=== PATIENT | female | born 1985 | race Caucasian/White ===

== ENCOUNTER 2022-09-09 22:53 | Emergency (ER) | payer BC, SELFPAY ==
[2022-09-09 22:55] VITALS: BP 147/79; PULSE 85; RESP 16; TEMP 37.2; O2SAT 100; BMI 23.9
--- NOTE | 2022-09-09 23:07 | ED_ITS ---
HPI - General Adult General Time Seen by Provider: 23:07 Date Seen: 09/09/22 Chief complaint: Urogenital Problems, Female Stated complaint: Cant empty bladder Time Seen by Provider: 09/09/22 23:01 Source: patient, RN notes reviewed and old records reviewed Mode of arrival: ambulatory Limitations: no limitations History of Present Illness HPI narrative: 37-year-old female who comes in today with sensation of incomplete bladder emptying. This is been going on a couple of days. Some dysuria. Denies flank pain, back pain, bowel or bladder incontinence, numbness or tingling in the legs. Related Data Home Medications Medication Instructions Recorded Confirmed albuterol sulfate 90 mcg/actuation 2 puff inhalation Q6H PRN 07/18/22 07/18/22 aerosol inhaler Previous Rx's Medication Instructions Recorded cefdinir 300 mg capsule 300 mg PO BID #14 caps 09/09/22 Allergies Allergy/AdvReac Type Severity Reaction Status Date / Time No Known Drug Allergies Allergy Verified 09/09/22 22:58 PFSH PFSH Social History Smoking Status: Never smoker Exam Narrative: Exam Narrative: General: Well-developed and well-nourished, no acute distress Head: Atraumatic and normocephalic Eyes: Pupils are equal reactive, extraocular motions intact, conjunctiva clear ENT: External nose and ears are normal, posterior pharynx without erythema or exudate Neck: No midline cervical tenderness, full spontaneous range of motion the neck, trachea midline, no adenopathy Heart: Regular rate and rhythm no murmurs or thrills Lungs: Clear to auscultation bilaterally without wheezes or crackles Abdomen: Soft, nontender, nondistended with active bowel sounds Musculoskeletal: No tenderness, deformity, or edema Neurologic: Awake, alert, and oriented x3, no gross focal neurologic deficits, cranial nerves intact as tested Psych: Mood and affect are appropriate Skin: No rashes Const: Vital Signs, click to edit/add: Vital Signs - 24 hr 09/09/22 22:55 Temperature 98.9 F Pulse Rate [Right Pulse Oximeter] 85 Respiratory Rate 16 Blood Pressure [Ri ght Upper Arm] 147/79 H Pulse Oximetry 100 Oxygen Delivery Me thod Room Air Course Course Hospital Course: Patient seen examined, prior records reviewed. Patient presents with sensation of incomplete bladder emptying. Bladder scan postvoid shows 0 residual. Urinalysis is ordered. If this shows evidence for urinary tract infection, this will be treated. If negative, consider CT scan to evaluate for external pressure on the bladder causing sensation of fullness. Consider also bladder wall stone, if urinalysis as signs of blood, proceed with CT scan. Reevaluation(s) Time of Reevaluation #1: 23:32 Reevaluation #1: Urinalysis independently interpreted by me is consistent with infection. Patient was started on Pyridium and Omnicef and is stable for discharge Vital Signs Vital signs: Initial Vital Signs Temperature 98.9 F 09/09/22 22:55 Temperature Source Temporal Artery Scan 09/09/22 22:55 Pulse Rate 85 09/09/22 22:55 Pulse Rhythm Regular 09/09/22 22:55 Pulse Strength 3+ Normal 09/09/22 22:55 Respiratory Rate 16 09/09/22 22:55 Blood Pressure 147/79 H 09/09/22 22:55 Blood Pressure Mean 101 09/09/22 22:55 Blood Pressure Position Sitting 09/09/22 22:55 Pulse Oximetry 100 09/09/22 22:55 Oxygen Delivery Method Room Air 09/09/22 22:55 Vital Signs Temperature 98.9 F 09/09/22 22:55 Pulse Rate 85 09/09/22 22:55 Respiratory Rate 16 09/09/22 22:55 Blood Pressure 147/79 H 09/09/22 22:55 Pulse Oximetry 100 09/09/22 22:55 Oxygen Delivery Method Room Air 09/09/22 22:55 Temperature 98.9 F 09/09/22 22:55 Pulse Rate 85 09/09/22 22:55 Respiratory Rate 16 09/09/22 22:55 Blood Pressure 147/79 H 09/09/22 22:55 Pulse Oximetry 100 09/09/22 22:55 Oxygen Delivery Method Room Air 09/09/22 22:55 Medical Decision Making Lab Data Labs: Lab Results 09/09/22 Range/Units 23:16 Urine Color Yellow (Yellow) Urine Appearance Cloudy A (Clear) Urine pH 5.5 (5.0-8.5) Ur Specific [place] >= 1.030 (1.000-1.030) Urine Protein 2+ A (Negative) Urine Glucose (UA) Negative (Negative) Urine Ketones Negative (Negative) Urine Blood 2+ A (Negative) Urine Nitrite Negative (Negative) Urine Bilirubin Negative (Negative) Urine Urobilinogen 0.2 (0.2-1.0) Ur Leukocyte Esterase 2+ A (Negative) Urine RBC 5-10 A (0-2) Urine WBC 25-50 A (0-5) Ur Squamous Epith Cells Moderate A (None-Few) Urine Bacteria Moderate A (None) Discharge Plan Discharge Clinical Impression: Urinary tract infection Patient Disposition: Home, Self-Care Condition: Stable Instructions: Urinary Tract Infection in Women (DC) Additional Instructions: Start antibiotics tomorrow as prescribed. Take Pyridium for urinary discomfort Activity Level: No Restrictions Discharge Diet: Regular Prescriptions: New cefdinir 300 mg capsule 300 mg PO BID Qty: 14 0RF No Action albuterol sulfate 90 mcg/actuation HFA aerosol inhaler 2 puff inhalation Q6H PRN Follow Up/Referrals: Zuri Smalls PA-C [Referring] - Stand Alone Forms: the grafterth Info Instructions
[2022-09-09 23:21] LABS: Appearance Urine Cloudy (Clear); Bilirubin Urine Negative (Negative); Blood Urine 2+ (Negative); Color Urine Yellow (Yellow); Glucose Urine Negative (Negative); Ketones Urine Negative (Negative); Leukocyte Esterase Urine 2+ (Negative); Nitrite Urine Negative (Negative); Protein Urine 2+ (Negative); Specific Gravity Urine >= 1.030 (1.000-1.030); Urobilinogen Urine 0.2 (0.2-1.0); pH Urine 5.5 (5.0-8.5)
[2022-09-09 23:29] LABS: Bacteria Urine Moderate; Squamous Epithelial Cell Urine Moderate (None-Few); WBC Urine 25-50 (0-5)
[2022-09-09] MEDS: cephALEXin 500 MG CAPSULE PO (23:40)
== END 2022-09-09 23:43 | disposition home or self-care (01) ==
PROVIDERS: Emergency Provider Family Medicine
DX: N39.0 Urinary tract infection, site not specified (principal)
CPT/HCPCS: 51798; 81001; 87086; 99283; 99284; A9270

== ENCOUNTER 2022-09-29 16:48 | Outpatient (CLI) | payer BC, SELFPAY | END 2022-09-29 16:49 | disposition home or self-care (01) | LOC: NFLDREF 10-01 07:07 | PROVIDERS: PCP Registered Nurse; Referring Provider Registered Nurse; Visit Provider Registered Nurse | DX: R30.0 Dysuria (principal); N39.0 Urinary tract infection, site not specified; N30.01 Acute cystitis with hematuria | CPT/HCPCS: 87086 ==

== ENCOUNTER 2024-03-21 13:34 | Emergency (ER) | payer BC, SELFPAY ==
[2024-03-21 14:41] VITALS: BP 123/66; PULSE 75; RESP 16; TEMP 36.7; O2SAT 99; BMI 28.3
--- NOTE | 2024-03-21 16:22 | ED.UPPEXIN ---
HPI - Extremity Injury (Upper) General Chief Complaint: Extremity Pain/Injury, Upper Stated Complaint: hurt left hand, two fingers had bent backwards Time Seen by Provider: 03/21/24 16:06 History of Present Illness HPI narrative: This 39-year-old female comes in because of persistent pain of her left hand. She fell a couple months ago and hyper extended her middle and ring fingers on her left hand at the MP joint. She had an x-ray about a month ago which was negative. She was thinking that her symptoms should of improved by now but she comes in stating that she continues to have pain in this area. Related Data Home Medications ?Medication ?Instructions ?Recorded ?Confirmed albuterol sulfate 90 mcg/actuation 2 puff inhalation Q6H PRN 07/18/22 03/21/24 aerosol inhaler Previous Rx's ?Medication ?Instructions ?Recorded methylprednisolone 4 mg tablets in See Rx Instructions PO .COMPLEX 03/21/24 a dose pack (Medrol (Caleb)) #21 ea Allergies Allergy/AdvReac Type Severity Reaction Status Date / Time No Known Drug Allergies Allergy Verified 02/24/24 16:17 Review of Systems Status of ROS: Reports: 10 or more systems reviewed and unremarkable except as noted in History and below Narrative: Constitutional: No fevers, no weight gain or loss. Eyes: No discharge. No vision changes. HENT: No congestion, no sore throat, no ear pain. Cardiovascular: No chest pain, no palpitations. Respiratory: No shortness of breath, no wheezes, no cough. Gastrointestinal: No abdominal pain, no vomiting, no diarrhea. Genitourinary: No dysuria, no hematuria. Musculoskeletal: Normal range of motion. Pain in the MP joints of her left middle and ring fingers. Skin: No rashes, no pruritis. Neurological: No dizziness, weakness, sensory change, speech change. Endo/Heme/Allergies: No bruising or bleeding. No polydipsia. Pysch: no suicidality, no anxiety, no insomnia. All other systems reviewed and are negative. [facility] Social History Smoking Status: Never smoker Exam Narrative: Exam Narrative: Constitutional: Well-developed, well-nourished, no acute distress. HEENT: Normocephalic, atraumatic. Neck: Normal range of motion. Nontender. Supple. Heart: Intact distal pulses. Lungs: No chest discomfort. No wheezes, rhonchi, or rales. Abdomen: Nontender. Back: Normal range of motion. Extremities: Pain in the MP joints of her left middle and ring fingers. Range of motion is intact. No sign of swelling or deformity. Skin: Intact. No rash. Warm. No erythema or pallor. Neurologic: No altered sensation. No weakness. Alert and oriented. Psychiatric: No suicidality. No anxiety or depression. No insomnia. Nursing notes and vitals signs are reviewed. Const: Vital Signs, click to edit/add: Vital Signs - 24 hr 03/21/24 14:41 Temperature 98.0 F Pulse Rate [Pulse Oximeter] 75 Respiratory Rate 16 Blood Pressure [Ri t Upper Arm] 123/66 Pulse Oximetry 99 Oxygen Delivery Me thod Room Air Course Vital Signs Vital signs: Initial Vital Signs Temperature 98.0 F 03/21/24 14:41 Temperature Source Temporal Artery Scan 03/21/24 14:41 Pulse Rate 75 03/21/24 14:41 Respiratory Rate 16 03/21/24 14:41 Blood Pressure 123/66 03/21/24 14:41 Blood Pressure Mean 85 03/21/24 14:41 Blood Pressure Position Sitting 03/21/24 14:41 Pulse Oximetry 99 03/21/24 14:41 Oxygen Delivery Method Room Air 03/21/24 14:41 Vital Signs Temperature 98.0 F 03/21/24 14:41 Pulse Rate 75 03/21/24 14:41 Respiratory Rate 16 03/21/24 14:41 Blood Pressure 123/66 03/21/24 14:41 Pulse Oximetry 99 03/21/24 14:41 Oxygen Delivery Method Room Air 03/21/24 14:41 Temperature 98.0 F 03/21/24 14:41 Pulse Rate 75 03/21/24 14:41 Respiratory Rate 16 03/21/24 14:41 Blood Pressure 123/66 03/21/24 14:41 Pulse Oximetry 99 03/21/24 14:41 Oxygen Delivery Method Room Air 03/21/24 14:41 MDM - Extremity Injury (Upper) MDM Narrative Medical decision making narrative: This patient comes in with persistent pain of her left hand as described above. This was due to an injury that occurred about 2 months ago. She did have x-ray images about a month ago and I reviewed these results showing that there was no sign of dislocation or fracture. The patient did receive a splint today with Coban wrapped around to immobilize these 2 joints. She is encouraged to use this as needed but also to increase activity as tolerated. I did provide a prescription for Medrol Dosepak which may provide some relief. Discharge Plan Discharge Clinical Impression: Hand pain, left Patient Disposition: Home, Self-Care Condition: Stable Additional Instructions: Wear splint as needed and increase activity as tolerated. Take medication also as needed and directed. Follow up with orthopedic clinic if not improving. Prescriptions: New methylprednisolone [Medrol (Caleb)] 4 mg tablets,dose pack See Rx Instructions .ROUTE .COMPLEX Qty: 21 0RF Rx Instructions: orally per package directions No Action albuterol sulfate 90 mcg/actuation HFA aerosol inhaler 2 puff inhalation Q6H PRN Follow Up/Referrals: Gloria Garibay, D[employer]ATOR [Primary Care Provider] - Stand Alone Forms: Rundown Appth Info Instructions
== END 2024-03-21 16:35 | disposition home or self-care (01) ==
LOC: ED 16:33
PROVIDERS: Emergency Provider Emergency Medicine Emergency Medical Services; PCP Registered Nurse
DX: M79.642 Pain in left hand (principal)
CPT/HCPCS: 99283; 99284